=== PATIENT | female | born 1995 ===

== ENCOUNTER 2017-01-05 07:51 | Emergency (ER) | payer MEDICAID, OTHER ==
[2017-01-05 08:02] VITALS: BP 140/88; RESP 18
[2017-01-05 08:14] VITALS: O2SAT 98
--- NOTE | 2017-01-05 09:16 | ED PDOC ---
Upper Extremity Pain/Injury Time Seen by Provider: 01/05/17 08:39 Chief Complaint (Nursing): Upper Extremity Problem/Injury History Per: Patient History/Exam Limitations: no limitations Onset/Duration Of Symptoms: Gradual (1 month worse since yesterday) Current Symptoms Are (Timing): Still Present Quality: Dull Severity: Mild Torso/Back (Pic): 1 - Pain Worse W/Movement Exacerbating Factor(s): Movement Additional History Per: Patient Additional Complaint(s): pt she has been having pain left shoulder x 1 month. denies any injury. no hand n/t/w Past Medical History Reviewed: Historical Data, Nursing Documentation, Vital Signs Vital Signs: Last Vital Signs Temp 98.8 F 01/05/17 08:01 Pulse 91 H 01/05/17 08:01 Resp 18 01/05/17 08:01 BP 140/88 01/05/17 08:01 Pulse Ox 98 01/05/17 08:12 - Medical History PMH: No Chronic Diseases - Family History Family History: States: Unknown Family Hx - Living Arrangements Living Arrangements: With Family - Social History Current smoker - smoking cessation education provided: No - Home Medications Home Medications: Ambulatory Orders Medication Instructions Recorded Naproxen 500 mg PO BID PRN #30 tab 01/05/17 - Allergies Allergies/Adverse Reactions: Allergies Allergy/AdvReac Type Severity Reaction Status Date / Time No Known Allergies Allergy Verified 01/05/17 08:12 Review of Systems ROS Statement: Except As Marked, All Systems Reviewed And Found Negative Constitutional: Negative for: Fever, Chills Cardiovascular: Negative for: Chest Pain, Palpitations Respiratory: Negative for: Cough, Shortness of Breath Gastrointestinal: Negative for: Nausea, Vomiting, Abdominal Pain Musculoskeletal: Positive for: Shoulder Pain (left shoulder pain). Negative for : Neck Pain Neurological: Negative for: Weakness, Numbness Physical Exam - Reviewed Nursing Documentation Reviewed: Yes Vital Signs Reviewed: Yes - Physical Exam Appears: Positive for: Uncomfortable Head Exam: Positive for: ATRAUMATIC, NORMAL INSPECTION, NORMOCEPHALIC Eye Exam: Positive for: Normal appearance Neck: Positive for: Normal, Painless ROM, Supple. Negative for: Decreased ROM, Limited ROM, Trachea Midline Cardiovascular/Chest: Positive for: Regular Rate, Rhythm, Chest Non Tender. Negative for: Edema, Gallop Respiratory: Positive for: Normal Breath Sounds. Negative for: Decreased Breath Sounds, Accessory Muscle Use, Crackles Pulses-Radial (L): 2+ Pulses-Radial (R): 2+ Extremity: Positive for: Normal ROM, Other (full rom of left shoulder hand nvi) . Negative for: Tenderness, Deformity, Swelling - ECG O2 Sat by Pulse Oximetry: 98 Pulse Ox Interpretation: Normal - Progress ED Course And Treament: xray nml advise f/u in medical clinic. Re-evaluation Time: 10:01 Condition: Improved Disposition - Clinical Impression Clinical Impression: Shoulder injury - Patient ED Disposition Is Patient to be Admitted: No Counseled Patient/Family Regarding: Studies Performed, Diagnosis, Need For Followup - Disposition Referrals: [facility] [Outside] Disposition: Routine/Home Disposition Time: 10:02 Condition: GOOD Prescriptions: Naproxen 500 mg PO BID PRN #30 tab PRN Reason: Pain, Moderate (4-7) Instructions: Swollen Shoulder Joint (ED)
--- NOTE | 2017-01-05 10:01 | RAD ---
PROCEDURE: Radiographs of the Left Shoulder HISTORY: pain no trauma COMPARISON: No prior. FINDINGS: BONES: Bone alignment and mineralization are normal. No acute fracture or bone destruction. JOINTS: Normal. Glenohumeral and acromioclavicular joints preserved. SOFT TISSUES: Normal. OTHER FINDINGS: None. IMPRESSION: Normal examination.
[2017-01-05 10:28] VITALS: PULSE 76; TEMP 98
== END 2017-01-05 10:28 | disposition home or self-care (01) ==
LOC: H.ER 07:51
DX: M25.512 Pain in left shoulder (principal)